=== PATIENT | female | born 1985 | race African-American/Black ===

== ENCOUNTER 2019-09-17 11:08 | Outpatient (CLI) | payer OTHER, SELFPAY ==
[2019-09-17] VITALS (33 sets, daily range): BP systolic 148–180; BP diastolic 81–112; PULSE 69–110; O2SAT 100
[2019-09-17 12:22] LABS: Basophils Percent Auto 0.4 % (0.2-1.2); Eosinophils Absolute Auto 0.1 K/mm3 (0-0.3); Eosinophils Percent Auto 1.8 % (0-4.4); Hematocrit 34.8 % (37.0-47.0); Hemoglobin 11.5 g/dL (12.0-15.0); Immature Granulocyte Absolute 0.06 K/mm3 (0.00-0.031); Immature Granulocyte Percent A 0.8 % (0-0.5); Lymphocytes Absolute Auto 1.73 K/mm3 (0.9-3.2); Lymphocytes Percent Auto 21.8 % (18.3-44.2); Mean Corpuscular Hemoglobin 30.8 pg (26-34); Mean Corpuscular Volume 93.3 fl (80-100); Mean Platelet Volume 9.7 fl (7.4-10.4); Monocytes Absolute Auto 0.6 K/mm3 (0.1-0.6); Monocytes Percent Auto 6.9 % (2.6-8.5); Neutrophils Absolute Auto 5.4 K/mm3 (1.3-6.7); Neutrophils Percent Auto 68.3 % (45.5-73.1); Platelet Count Result 312 k/mm3 (150-375); Red Blood Count 3.73 M/mm3 (4.2-5.4); Red Cell Distribution Width 12.8 % (11.5-14.5); White Blood Count 7.9 K/mm3 (4.5-10.0)
[2019-09-17 12:28] LABS: Alanine Aminotransferase 9 U/L (4-35); Albumin Level 3.6 g/dL (3.5-5.1); Alkaline Phosphatase 50 U/L (38-126); Aspartate Amino Transferase 21 U/L (14-36); Bilirubin,Total 0.2 mg/dL (0.2-1.3); Blood Urea Nitrogen 7 mg/dL (7-17); Calcium 8.9 mg/dL (8.4-10.2); Carbon Dioxide 28 mmol/L (22-30); Chloride 102 mmol/L (98-107); Estimated Glomerular Filt Rate > 60; Glucose 90 mg/dL (65-105); Potassium 3.9 mmol/L (3.4-5.0); Sodium 134 mmol/L (137-145); Uric Acid 3.4 mg/dL (2.5-7.5)
[2019-09-17] MEDS: NIFEdipine 10 MG CAPSULE PO ×2 (13:00→14:12)
[2019-09-17] MEDS: LABETALOL HCL 100 MG TABLET PO (13:00)
--- NOTE | 2019-09-17 13:00 | PC.NURSE ---
Called Dr. Monterroso with BPs and lab results. Orders received. May removed EF.
--- NOTE | 2019-09-17 13:43 | PC.NURSE ---
Pt refused dose of Procardia at this time.
--- NOTE | 2019-09-17 15:25 | PC.NURSE ---
Called Dr. Monterroso with pt status. Informed of BPs. Orders received and documented.
--- NOTE | 2019-09-17 15:45 | PC.NURSE ---
Called Dr. Monterroso with BP update. Orders received.
[2019-09-17] MEDS: LABETALOL HCL 100 MG TABLET 300 MG PO (16:03)
--- NOTE | 2019-09-17 17:13 | PC.NURSE ---
on unit. BPs reviewed. Informed to observe until 1800 and call with BPs.
--- NOTE | 2019-09-17 18:10 | PC.NURSE ---
Called Dr. Cummins with pt update. Informed of BPs. May D/C home with symptoms to call for. Call with BP >160/100.
--- NOTE | 2019-09-17 18:25 | PC.NURSE ---
Pt given D/C instructions to call for diastolic greater than 160 or systolic greater than 100, or any pre eclampsia symptoms noted on handout. Pt instructed to take Labetalol q 8hrs and times given when to take. Instructed to take Procardia at home in AM. Pt understands and agrees to instructions.
== END 2019-09-17 18:30 | disposition home or self-care (01) ==
LOC: ANHOBOP 11:14 → ANHOBPP 11:19
PROVIDERS: Visit Provider Obstetrics & Gynecology
DX: O13.9 Gestational [pregnancy-induced] hypertension without significant proteinuria, unspecified trimester (principal)
CPT/HCPCS: 36415; 80053; 84550; 85025; 99199; A9270

== ENCOUNTER 2019-10-10 15:04 | Outpatient (CLI) | payer OTHER, SELFPAY ==
[2019-10-10] VITALS (16 sets, daily range): BP systolic 147–178; BP diastolic 83–109; PULSE 75–90; TEMP 36.1
[2019-10-10 15:43] LABS: Basophils Percent Auto 0.2 % (0.2-1.2); Eosinophils Absolute Auto 0.1 K/mm3 (0-0.3); Eosinophils Percent Auto 1.6 % (0-4.4); Hematocrit 34.8 % (37.0-47.0); Hemoglobin 11.4 g/dL (12.0-15.0); Immature Granulocyte Absolute 0.03 K/mm3 (0.00-0.031); Immature Granulocyte Percent A 0.4 % (0-0.5); Mean Corpuscular HGB Conc 32.8 g/dl (32-36); Mean Corpuscular Hemoglobin 30.8 pg (26-34); Mean Corpuscular Volume 94.1 fl (80-100); Mean Platelet Volume 9.5 fl (7.4-10.4); Monocytes Absolute Auto 0.6 K/mm3 (0.1-0.6); Monocytes Percent Auto 7.4 % (2.6-8.5); Neutrophils Absolute Auto 5.6 K/mm3 (1.3-6.7); Neutrophils Percent Auto 68.4 % (45.5-73.1); Platelet Count Result 302 k/mm3 (150-375); Red Cell Distribution Width 12.8 % (11.5-14.5); White Blood Count 8.2 K/mm3 (4.5-10.0)
[2019-10-10 15:55] LABS: Add Urine Microscopic? NO; Appearance Urine Clear (Clear); Bilirubin Urine Negative (Negative); Blood Urine Negative (Negative); Color Urine Colorless (Yellow); Glucose Urine UA Negative (Negative); Ketones Urine Negative (Negative); Leukocyte Esterase Ur Negative LEU/UL (NEGATIVE); Nitrate Urine Negative (Negative); Protein Urine Negative (Negative); RBC Urine 0-2 /hpf (0-2); Specific Grav Ur 1.005 (1.001-1.035); Squamous Epithelial Cell Urine Occasional /hpf (Few); Urobilinogen Urine Negative mg/dL (<2.0); WBC Urine 0-3 /hpf (0-3)
[2019-10-10 15:57] LABS: Alanine Aminotransferase 10 U/L (4-35); Albumin Level 3.6 g/dL (3.5-5.1); Alkaline Phosphatase 51 U/L (38-126); Aspartate Amino Transferase 20 U/L (14-36); Bilirubin,Total 0.3 mg/dL (0.2-1.3); Blood Urea Nitrogen 6 mg/dL (7-17); Calcium 9.4 mg/dL (8.4-10.2); Carbon Dioxide 27 mmol/L (22-30); Chloride 101 mmol/L (98-107); Estimated Glomerular Filt Rate > 60; Glucose 95 mg/dL (65-105); Potassium 3.8 mmol/L (3.4-5.0); Sodium 132 mmol/L (137-145); Uric Acid 3.4 mg/dL (2.5-7.5)
[2019-10-10 16:10] LABS: Total Protein Urine Random 12 mg/dL
[2019-10-10 16:11] LABS: Creatinine Urine 24.3 mg/dL
[2019-10-10] MEDS: NIFEdipine 30 MG TAB.ER.24 PO (16:33)
--- NOTE | 2019-10-10 17:37 | PC.NURSE ---
173- called, read last several bp's. Order received to let pt eat and watch a few more bp's and call back for further orders.
--- NOTE | 2019-10-10 17:58 | PC.NURSE ---
1616- called, read bp's and labs. Orders received to start 24hr urine, give procardia 30mg now.
--- NOTE | 2019-10-10 18:41 | PC.NURSE ---
Updated Dr. Monterroso on maternal assessment, including BP and FHT. Order for discharge given. Patient to follow-up as scheduled. 24 hour urine to be returned at 10/11/2019 1800.
== END 2019-10-10 18:55 | disposition home or self-care (01) ==
LOC: ANHOBOP 15:10 → ANHOBPP 15:11
PROVIDERS: Family Provider Obstetrics & Gynecology; Visit Provider Obstetrics & Gynecology
DX: O13.9 Gestational [pregnancy-induced] hypertension without significant proteinuria, unspecified trimester (principal); Z3A.00 Weeks of gestation of pregnancy not specified
CPT/HCPCS: 36415; 59025; 80053; 81003; 82570; 84156; 84550; 85025; 87086; 87088; 99199; A9270

== ENCOUNTER 2019-10-11 18:35 | Outpatient (NON) | payer OTHER, SELFPAY ==
[2019-10-11 18:46] VITALS: BMI 59.8
[2019-10-11 19:24] LABS: Collection Time Urine 24 HOURS
[2019-10-11 19:33] LABS: Total Volume 24 Hour Urine 2600 ml
[2019-10-11 19:34] LABS: Patient Weight 370 Lbs
[2019-10-11 19:43] LABS: Specific Gravity Ur 1.013
[2019-10-11 19:52] LABS: Creatinine Clearance Urine 159.9 ml/min (75-125); Creatinine Urine 79.5 mg/dL; Total Protein Urine 24 Hr 286 MG/DAY (28-141); Total Protein Urine Random 11 mg/dL
== END 2019-10-11 18:36 ==
LOC: ANHOBOP 18:43
PROVIDERS: Visit Provider Obstetrics & Gynecology
DX: Z34.90 Encounter for supervision of normal pregnancy, unspecified, unspecified trimester (principal); Z3A.00 Weeks of gestation of pregnancy not specified
CPT/HCPCS: 81050; 82575; 84156

== ENCOUNTER 2019-10-21 08:42 | Observation (INO) | payer OTHER, SELFPAY ==
[2019-10-21 09:30] VITALS: BMI 62.4
[2019-10-21 09:31] VITALS: BP 145/83; PULSE 89
[2019-10-21 10:01] VITALS: BP 137/84; PULSE 84
--- NOTE | 2019-10-21 10:01 | LDADM ---
This patient, Jaimie Teague, was admitted to OB Post 115 on 10/21/19 at 08:42. Plans for labor, pain management and were discussed with patient. Patient/family oriented to hospital policies and general routines including ID bracelet, bed and alarms, visiting hours, pain management, procedures, bathroom and other care routines, personal items, smoking policy, room service/diet and guest tray routines, infant security routines, and visiting hours. Patient/Family are encouraged to report perceived risks to care and to ask questions if they do not understand what they are told or what they should do. See OBIX for further documentation.
--- NOTE | 2019-10-21 10:01 | PC.NURSE ---
Dr Monterroso here 0935 to evaluate pt for transfer with premature rupture of membranes clear fluid at 0810
--- NOTE | 2019-10-21 10:02 | PC.NURSE ---
8209 Dr Monterroso at bedside discussing plan of care and bedside u/s...SVE 1cm/thick/high
[2019-10-21 10:31] VITALS: BP 135/77; PULSE 82
--- NOTE | 2019-10-21 10:39 | PM.OBTRLD ---
OB - Triage/Final Diagnosis Visit Information Date of evaluation: 10/21/19 Comments/Additional reasons for admission: PPROM/chtn Bedside ultrasound performed vertex minimal fluid. pelvic exam closed by visualization cultures obtained and sent with patient. . Evaluation Baseline heart rate: 140 Variability: Average (6-10) monitor decelerations: None Cervical dilation (cm): 1 Cervical effacement (%): 0 station: -4 (vertex by ultrasound) Vital signs: Vital Signs - 24 hr 10/21/19 09:31 10/21/19 10:01 10/21/19 10:31 Pulse Rate 89 84 82 Blood Pressure 145/83 H 137/84 135/77 Final Diagnosis (1) premature rupture of membranes (PPROM) with unknown onset of labor: Code(s): O42.919 - premature rupture of membranes, unspecified as to length of time between rupture and onset of labor, unspecified trimester Status: Acute Plan: Patient to be transferred to tertiary care.
[2019-10-21] MEDS: NIFEdipine 30 MG TAB.ER.24 PO ×2 (10:46→10:47)
[2019-10-21] MEDS: BETAMETHASONE SOD PHOS/ACETATE 30 MG/5 ML VIAL 12 MG IM (10:56)
[2019-10-21] MEDS: LACTATED RINGERS 1,000 ML 100 ML IV CONT (10:57)
[2019-10-21 10:59] VITALS: PULSE 88
[2019-10-21] MEDS: LABETALOL HCL 100 MG TABLET 300 MG PO (10:59)
[2019-10-21 11:01] VITALS: BP 147/93; PULSE 81
[2019-10-21 11:30] VITALS: BP 144/81; PULSE 89
== END 2019-10-21 11:35 | disposition short-term general hospital (02) ==
PROVIDERS: Admitting Provider Obstetrics & Gynecology; Visit Provider Obstetrics & Gynecology
DX: O42.913 Preterm premature rupture of membranes, unspecified as to length of time between rupture and onset of labor, third trimester (principal); O16.3 Unspecified maternal hypertension, third trimester; Z3A.29 29 weeks gestation of pregnancy
CPT/HCPCS: 96372; 96374; A9270; G0378; G0379; J0456; J0702; J7060; J7120

== ENCOUNTER 2021-08-27 11:20 | Outpatient (CLI) | payer BC, SELFPAY ==
[2021-08-27] VITALS (14 sets, daily range): BP systolic 136–180; BP diastolic 80–102; PULSE 70–101; O2SAT 97–100
[2021-08-27 12:10] LABS: Basophils Percent Auto 0.3 % (0.2-1.2); Eosinophils Absolute Auto 0.1 K/mm3 (0-0.3); Eosinophils Percent Auto 2.1 % (0-4.4); Hematocrit 36.3 % (37.0-47.0); Hemoglobin 12.1 g/dL (12.0-15.0); Immature Granulocyte Absolute 0.02 K/mm3 (0.00-0.031); Immature Granulocyte Percent A 0.3 % (0-0.5); Lymphocytes Absolute Auto 1.92 K/mm3 (0.9-3.2); Lymphocytes Percent Auto 28.4 % (18.3-44.2); Mean Corpuscular HGB Conc 33.3 g/dl (32-36); Mean Corpuscular Hemoglobin 30.8 pg (26-34); Mean Corpuscular Volume 92.4 fl (80-100); Mean Platelet Volume 9.2 fl (7.4-10.4); Monocytes Absolute Auto 0.3 K/mm3 (0.1-0.6); Monocytes Percent Auto 4.9 % (2.6-8.5); Neutrophils Absolute Auto 4.3 K/mm3 (1.3-6.7); Platelet Count Result 331 k/mm3 (150-375); Red Blood Count 3.93 M/mm3 (4.2-5.4); Red Cell Distribution Width 12.9 % (11.5-14.5); White Blood Count 6.8 K/mm3 (4.5-10.0)
[2021-08-27 12:18] LABS: Alanine Aminotransferase 12 U/L (4-35); Alkaline Phosphatase 56 U/L (38-126); Anion Gap 7 mmol/L (8-16); Aspartate Amino Transferase 26 U/L (14-36); Bilirubin,Total 0.6 mg/dL (0.2-1.3); Blood Urea Nitrogen 6 mg/dL (7-17); Calcium 8.9 mg/dL (8.4-10.2); Carbon Dioxide 24 mmol/L (22-30); Chloride 102 mmol/L (98-107); Estimated Glomerular Filt Rate > 60; Glucose 99 mg/dL (65-110); Potassium 3.8 mmol/L (3.4-5.0); Sodium 133 mmol/L (137-145)
[2021-08-27 12:36] LABS: Creatinine Urine 226.1 mg/dL
[2021-08-27 12:38] LABS: Add Urine Microscopic? YES; Appearance Urine Cloudy (Clear); Bacteria Urine Trace /hpf; Bilirubin Urine Negative (Negative); Blood Urine Negative (Negative); Color Urine Yellow (Yellow); Glucose Urine UA Negative (Negative); Ketones Urine Negative (Negative); Leukocyte Esterase Ur Negative LEU/UL (NEGATIVE); Mucus Urine Rare /lpf; Nitrate Urine Negative (Negative); Protein Urine Negative (Negative); RBC Urine 0-2 /hpf (0-2); Specific Grav Ur 1.023 (1.001-1.035); Squamous Epithelial Cell Urine Many /hpf (Few); Urobilinogen Urine Negative mg/dL (<2.0); WBC Urine 0-3 /hpf (0-3)
--- NOTE | 2021-08-27 12:46 | PC.NURSE ---
1230-- Dr. De Santiago informed about patients blood pressures and labs.
[2021-08-27 12:49] LABS: Total Protein Urine Random < 5 mg/dL; Ur Ttl Prot Creatinine Ratio < 0.02 mg/mg (0-0.20)
[2021-08-27 13:06] LABS: HIV 1/2 Ab P24 Ag Result Negative (Negative)
[2021-08-27 13:17] LABS: Hepatitis B Surface Antigen Negative (Negative)
[2021-08-27] MEDS: LABETALOL HCL 100 MG TABLET PO (14:01)
--- NOTE | 2021-08-27 14:20 | PC.NURSE ---
1345--BP's reported to Dr. De Santiago. Med orders given. Reported patients need to leave without BP WNL. / Jonnathan expressed need for pt to remain in unit until stable. Information relayed to patient.
--- NOTE | 2021-08-27 14:23 | PC.NURSE ---
1400--Discussed with pt importance of remaining on unit until BP is stable-discussed (per Dr. De Santiago) possibility of stroke or seizure. Pt is aware and acknowledged that she understands this information. Pt states she will stay one hour after dosage of med and then she needs to leave.
[2021-08-27 17:34] LABS: Rubella IgG Antibody > 120.0 IU/ML
[2021-08-29 10:47] LABS: Rapid Plasma Reagin Non-Reactive (NonReactive)
== END 2021-08-27 14:56 | disposition home or self-care (01) ==
LOC: ANHOBOP 11:30 → ANHOBPP 11:31
PROVIDERS: PCP Nurse Practitioner Family; Visit Provider Obstetrics & Gynecology Gynecology
DX: O13.9 Gestational [pregnancy-induced] hypertension without significant proteinuria, unspecified trimester (principal); Z3A.00 Weeks of gestation of pregnancy not specified
CPT/HCPCS: 36415; 80053; 81001; 82570; 84156; 84550; 85025; 86592; 86703; 86762; 86850; 86900; 86901; 87086; 87340; 99199; A9270; G0432

== ENCOUNTER 2021-08-30 11:53 | Outpatient (NON) | payer BC, SELFPAY ==
[2021-08-30 13:00] VITALS: BMI 65.2
[2021-08-30 13:38] LABS: Collection Time Urine 24 HOURS
[2021-08-30 13:50] LABS: Total Protein Urine Random 10 mg/dL
[2021-08-30 13:52] LABS: Creatinine Urine 67.8 mg/dL; Patient Weight 404 Lbs
[2021-08-30 14:41] LABS: Specific Gravity Ur 1.015; Total Protein Urine 24 Hr 300 mg/24hr (28-141); Total Volume 24 Hour Urine 3000 ml
[2021-08-30 14:42] LABS: Total Volume 24 Hour Urine 3000 ml
[2021-08-30 14:45] LABS: Creatinine Clearance Urine 151.5 ml/min (75-125); Serum Creat 0.6
== END 2021-08-30 11:54 | disposition home or self-care (01) ==
PROVIDERS: PCP Nurse Practitioner Family; Visit Provider Obstetrics & Gynecology Gynecology
DX: O13.9 Gestational [pregnancy-induced] hypertension without significant proteinuria, unspecified trimester (principal); Z3A.00 Weeks of gestation of pregnancy not specified
CPT/HCPCS: 81050; 82575; 84156

== ENCOUNTER 2022-01-27 14:15 | Outpatient (CLI) | payer BC, SELFPAY ==
--- NOTE | ~2022-01-27 | US_ITS ---
EXAMINATION: US OB limited w BPP DATE: 01/27/2022 16:03 INDICATION: Nonreactive nonstress test. Third trimester. TECHNIQUE: Real-time pelvic ultrasound was performed. COMPARISON: None. FINDINGS: There is a single living fetus in vertex presentation. The placenta is anterior. heart rate is 146 beats per minute (bpm). The amniotic fluid index is 11.3 cm, which is normal. Biophysical profile performed by the technologist: breathing (30 sec sustained breathing in 30 minutes): 2 out of 2 movement (3 gross body movements in 30 minutes): 2 out of 2 tone (one episode of vtgrmnq-xcpvmzubu-qivmwpo limb movement): 2 out of 2 Amniotic fluid pocket (2 cm): 2 out of 2 Total score: 8 out of 8 IMPRESSION: 1. Single living fetus in vertex presentation. 2. Biophysical profile 8 out of 8. Reviewed, dictated and finalized at location A.
[2022-01-27 16:28] LABS: Basophils Percent Auto 0.3 % (0.2-1.2); Eosinophils Absolute Auto 0.2 K/mm3 (0-0.3); Hematocrit 35.1 % (37.0-47.0); Hemoglobin 11.3 g/dL (12.0-15.0); Immature Granulocyte Absolute 0.08 K/mm3 (0.00-0.031); Lymphocytes Absolute Auto 1.66 K/mm3 (0.9-3.2); Lymphocytes Percent Auto 21.3 % (18.3-44.2); Mean Corpuscular HGB Conc 32.2 g/dl (32-36); Mean Corpuscular Hemoglobin 30.7 pg (26-34); Mean Corpuscular Volume 95.4 fl (80-100); Mean Platelet Volume 9.1 fl (7.4-10.4); Monocytes Absolute Auto 0.5 K/mm3 (0.1-0.6); Monocytes Percent Auto 6.9 % (2.6-8.5); Neutrophils Absolute Auto 5.4 K/mm3 (1.3-6.7); Neutrophils Percent Auto 68.5 % (45.5-73.1); Platelet Count Result 318 k/mm3 (150-375); Red Blood Count 3.68 M/mm3 (4.2-5.4); Red Cell Distribution Width 13.2 % (11.5-14.5); White Blood Count 7.8 K/mm3 (4.5-10.0)
[2022-01-27 16:31] LABS: Alanine Aminotransferase 18 U/L (6-35); Albumin Level 3.7 g/dL (3.5-5.1); Alkaline Phosphatase 80 U/L (38-126); Anion Gap 7 mmol/L (8-16); Aspartate Amino Transferase 32 U/L (14-36); Bilirubin,Total 0.6 mg/dL (0.2-1.3); Blood Urea Nitrogen 4 mg/dL (7-17); Calcium 8.7 mg/dL (8.4-10.2); Carbon Dioxide 27 mmol/L (22-30); Chloride 101 mmol/L (98-107); Estimated Glomerular Filt Rate > 60; Glucose 97 mg/dL (65-110); Potassium 4.1 mmol/L (3.4-5.0); Sodium 135 mmol/L (137-145); Uric Acid 3.8 mg/dL (2.5-7.5)
[2022-01-27 16:38] LABS: Total Protein Urine Random 8 mg/dL; Ur Ttl Prot Creatinine Ratio 0.11 mg/mg (0-0.20)
[2022-01-27 16:47] LABS: Add Urine Microscopic? YES; Appearance Urine Clear (Clear); Bilirubin Urine Negative (Negative); Blood Urine Negative (Negative); Color Urine Yellow (Yellow); Glucose Urine UA Negative (Negative); Ketones Urine Trace mg/dL (Negative); Leukocyte Esterase Ur Negative LEU/UL (NEGATIVE); Nitrate Urine Negative (Negative); Protein Urine Negative (Negative); Specific Grav Ur 1.015 (1.001-1.035); Urobilinogen Urine 0.2 mg/dL (<2.0)
[2022-01-27 17:08] VITALS: BP 156/86; PULSE 90
[2022-01-27 17:19] LABS: Bacteria Urine Trace /hpf; RBC Urine 0-2 /hpf (0-2); Squamous Epithelial Cell Urine Rare /hpf (Few); WBC Urine 0-3 /hpf (0-3)
--- NOTE | 2022-01-27 17:23 | PC.NURSE ---
1532--Reported elevated BP's to Jasper Deleon. Orders received. 1619--NST,BPP and manual BP reported to Jasper Pagan. Labs sent. Pt refusing Procardia 10 mg. 1624--Joe Deleon call transferred to pt room to discuss plan nof care. Pt continues to refuse Procardia 10 mg. Procardia 10mg will be called into Pharmacy for pt to take-pt agrees to this plan with Jasper Deleon. 1703--Labs and manual BP's reported to Jasper Deleon. DC orders given. 1720--Pt DC'd to home. Pt reminded to chicken picker prescription and take as directed. Pt agrees to this.
--- NOTE | 2022-01-27 17:38 | PC.NURSE ---
1710--Manual BP's 156/86 and 150/84.(right forearm) Reported to front desk worker.
== END 2022-01-27 17:20 | disposition home or self-care (01) ==
PROVIDERS: Advanced Practice Midwife; PCP Nurse Practitioner Family; Visit Provider Obstetrics & Gynecology Gynecology
DX: O13.9 Gestational [pregnancy-induced] hypertension without significant proteinuria, unspecified trimester (principal); Z3A.00 Weeks of gestation of pregnancy not specified
CPT/HCPCS: 36415; 59025; 76815; 76819; 80053; 81001; 82570; 84156; 84550; 85025; 87086; 87088

== ENCOUNTER 2022-02-14 09:21 | Outpatient (RCR) | payer BC, SELFPAY ==
--- NOTE | ~2022-02-14 | US_ITS ---
EXAMINATION: US OB BPP wo non-stress DATE: 02/14/2022 11:25 INDICATION: Nonreactive nonstress test TECHNIQUE: Real-time pelvic ultrasound was performed. The interpreting radiologist was not present fo r the study. COMPARISON: 01/27/2022 FINDINGS: There is a single living fetus in vertex presentation. The placenta is anterior. heart rate is 150 beats per minute (bpm). Biophysical profile performed by the technologist: breathing (30 sec sustained breathing in 30 minutes): 2 out of 2 movement (3 gross body movements in 30 minutes): 2 out of 2 tone (one episode of safwnah-fmvjlolil-zmnxbwq limb movement): 2 out of 2 Amniotic fluid pocket (2 cm): 2 out of 2 Total score: 8 out of 8 IMPRESSION: 1. Single living fetus in vertex presentation. 2. Biophysical profile 8 out of 8. Reviewed, dictated and finalized at location B.
[2022-02-14 11:30] VITALS: BP 142/88; PULSE 80
== END 2022-03-23 10:10 | disposition home or self-care (01) ==
LOC: ANHOBOP 09:21
PROVIDERS: PCP Nurse Practitioner Family; Visit Provider Obstetrics & Gynecology Gynecology
DX: O36.8330 Maternal care for abnormalities of the fetal heart rate or rhythm, third trimester, not applicable or unspecified (principal); Z3A.37 37 weeks gestation of pregnancy
CPT/HCPCS: 59025; 76819

== ENCOUNTER 2022-02-22 15:55 | Inpatient (IN) | payer BC, SELFPAY ==
[2022-02-22] VITALS (49 sets, daily range): BP systolic 124–201; BP diastolic 62–129; PULSE 70–102; TEMP 36.4–36.8; O2SAT 93–100; BMI 73.3
--- NOTE | 2022-02-22 16:25 | LDADM ---
This patient, Jaimie Teague, was admitted to Labor/Delivery/Recovery 103 on 02/22/22 at 15:55. Plans for labor, pain management and were discussed with patient. Patient/family oriented to hospital policies and general routines including ID bracelet, bed and alarms, visiting hours, pain management, procedures, bathroom and other care routines, personal items, smoking policy, room service/diet and guest tray routines, security routines, and visiting hours. Patient/Family are encouraged to report perceived risks to care and to ask questions if they do not understand what they are told or what they should do. See OBIX for further documentation.
[2022-02-22 16:46] LABS: Basophils Percent Auto 0.3 % (0.2-1.2); Eosinophils Absolute Auto 0.1 K/mm3 (0-0.3); Eosinophils Percent Auto 1.9 % (0-4.4); Hematocrit 34.3 % (37.0-47.0); Hemoglobin 11.3 g/dL (12.0-15.0); Immature Granulocyte Absolute 0.06 K/mm3 (0.00-0.031); Immature Granulocyte Percent A 0.8 % (0-0.5); Lymphocytes Absolute Auto 1.55 K/mm3 (0.9-3.2); Lymphocytes Percent Auto 20.9 % (18.3-44.2); Mean Corpuscular HGB Conc 32.9 g/dl (32-36); Mean Corpuscular Hemoglobin 31.1 pg (26-34); Mean Corpuscular Volume 94.5 fl (80-100); Mean Platelet Volume 9.4 fl (7.4-10.4); Monocytes Absolute Auto 0.6 K/mm3 (0.1-0.6); Monocytes Percent Auto 7.7 % (2.6-8.5); Neutrophils Absolute Auto 5.1 K/mm3 (1.3-6.7); Neutrophils Percent Auto 68.4 % (45.5-73.1); Platelet Count Result 274 k/mm3 (150-375); Red Blood Count 3.63 M/mm3 (4.2-5.4); Red Cell Distribution Width 14.2 % (11.5-14.5); White Blood Count 7.4 K/mm3 (4.5-10.0)
--- NOTE | 2022-02-22 16:47 | P.PNAN_ITS ---
Anes - Eval Pre Procedure Procedure: labor epidural Date/Time: 02/22/22 16:47 Pre Op Diagnosis: Induction of Labor Patient Data Age: 37 Gender: F Height: 1.65 m Weight: 200 kg Last Vital Signs Pulse 79 02/22/22 16:46 BP 195/108 H 02/22/22 16:46 O2 Del Method Room Air 02/22/22 16:24 Allergies Allergy/AdvReac Type Severity Reaction Status Date / Time No Known Allergies Allergy Verified 09/17/19 12:47 Home Medications Medication Instructions Recorded Confirmed Type labetalol 300 mg tablet 300 mg PO TID 01/27/22 02/22/22 History Classic 1 tab-cap PO DAILY 02/22/22 02/22/22 History aspirin 81 mg chewable tablet 81 mg PO DAILY 02/22/22 02/22/22 History Laboratory Tests 02/22/22 02/22/22 02/22/22 16:34 16:34 16:34 WBC Pending RBC Pending Hgb Pending Hct Pending MCV Pending MCH Pending MCHC Pending RDW Pending Plt Count Pending MPV Pending Immature Gran % (Auto) Pending Neut % (Auto) Pending Lymph % (Auto) Pending [place] % (Auto) Pending Eos % (Auto) Pending Baso % (Auto) Pending Lymph # (Auto) Pending [place] # (Auto) Pending Eos # (Auto) Pending Baso # (Auto) Pending Abs Immat Gran (auto) Pending Absolute Neuts (auto) Pending Absolute Nucleated RBC Pending Nucleated RBC % Pending RPR Pending HIV 1&2 Ab/P24 Ag 4thGn Pending Patient hx anesthesia problems: none Family hx anesthesia problems: none Results Review: All pre-operative results and documents have been reviewed as part of the pre- operative evaluation. [facility] Past Medical History Medical History premature rupture of membranes (PPROM) with unknown onset of labor Family History Family History Mother Hypertension Social History Social History Substance use: never Spiritual care concerns: No Exam Day of Procedure 02/22/22 16:47 Patient weight: super morbidly obese (73 BMI) Airway: Mallampati scale class III Neurological: alert and oriented
[2022-02-22] MEDS: DINOPROSTONE 10 MG VAG INSERT VAGINAL (17:15)
[2022-02-22] MEDS: LACTATED RINGERS 1,000 ML 125 ML IV CONT ×3 (17:45→21:15)
[2022-02-22] MEDS: AMPICILLIN 2 GM/NS 100 ML 2 GM/100 ML BAG IVPB (17:47)
[2022-02-22] MEDS: LABETALOL HCL 100 MG TABLET 300 MG PO (21:15)
[2022-02-22] MEDS: AMPICILLIN 1 GM/NS 50 ML 1 GM/50 ML BAG IVPB (21:15)
--- NOTE | 2022-02-22 21:25 | WPDOBADMIT ---
Obstetrics - Admit Note Admission Note: record reviewed. No pertinent additions to the history and/or any subsequent changes in the physical findings that are not consistent with the expected course of the were found. Additions to the history and/or subsequent changes in the physical findings follow. Here for MIL for CHTN with stable proteinuria (approx 300 mg/24 hours each trimester). Cervix now 5/50/-3 with prior SROM. Now forebag collecting at os. Forebag ruptured and IUPC started because RN would not begin Pitocin without it. FHTs reactive.
--- NOTE | 2022-02-22 21:27 | PM.OBPNLAB ---
Pain Control Date/time seen: 02/22/22 21:27 Pain control: epidural Comments: bedside u/s done and vertex
[2022-02-23] VITALS (13 sets, daily range): BP systolic 124–160; BP diastolic 72–101; PULSE 72–101; RESP 18–20; TEMP 36.1–37.1; O2SAT 96–100
[2022-02-23] MEDS: LACTATED RINGERS 1,000 ML 125 ML IV CONT (00:46)
[2022-02-23] MEDS: OXYTOCIN 30 UNITS/NS 500 ML 30 UNITS/500 ML BAG IV CONT (00:46)
[2022-02-23] MEDS: AMPICILLIN 1 GM/NS 50 ML 1 GM/50 ML BAG IVPB (01:45)
[2022-02-23] MEDS: SODIUM CHLORIDE 0.9% IV 300 ML 600 ML I-UTERINE (03:14)
--- NOTE | 2022-02-23 03:56 | PM.OBPRVD ---
OB - Delivery Note Procedure Delivery date: 02/23/22 Procedure: vacuum assisted vaginal delivery Events: Chronic Hypertension and Other (chronic proteinuria; Morbid obesity BMI 65) Induction method: Per Pitocin Protocol and Per Cervidil Protocol Delivery monitor: External FHT and Internal Uterine Route of delivery: Indication for instrumentation: nonreassuring FHR tracing Laceration Description: Perineal - 2nd Degree Delivery repair: vicryl (3-0) Specimen: Yes (placenta) Quantitative Blood Loss (ml): 150 Anesthesia type: Epidural Disposition: Floor Narrative: Called when patient / to come in due to deep variables to 40's and 50's. On arrival, per RN anterior lip. Put patient up for delivery and infant with one push. Patient with poor pushing efforts and unable to monitor. Vacuum applied and with next push delivered head. Tight nuchal cord delivered through and body delivery immediately. Baby Date of : 02/23/22 Weeks of gestation at delivery: 38 Infant gender: Female Weight (pounds): 7 Weight (ounces): 8 presentation: vertex position: Right Occiput Anterior Placenta delivery description: Spontaneous Cord Vessel Description: 3 Vessels, Nuchal Cord (tight) and Other (completely straight cord without any twisting) score one minute: 8 score five minutes: 9
--- NOTE | 2022-02-23 04:01 | PM.OBDSVD ---
DS: Admitting Diagnosis Discharge Date 02/24/22 Admitting Diagnosis IUP 38 weeks CHTN Chronic proteinuria DS: Discharge Diagnosis Discharge Diagnosis (1) (normal spontaneous vaginal delivery): Code(s): O80 - Encounter for full-term uncomplicated delivery Status: Acute OB - DS: Summary OB Procedures : NST and Ultrasound OB Procedures Intrapartum: Vacuum extraction OB Procedures: : None Peripartum Data Infant Delivery Method: Assisted Delivery (vacuum assisted) Laceration Description: Perineal - 2nd Degree complications: none Status at Discharge Functional status at discharge: independent ambulation Overall status at discharge: patient is progressing back to baseline Time Spent with Patient Time attestation: Total time spent providing and/or coordinating discharge services: DS: Data Data Completed and Pending Labs on day of discharge: Labs from last 24 hours 02/22/22 02/22/22 02/22/22 16:34 16:34 16:34 WBC RBC Hgb Hct MCV MCH MCHC RDW Plt Count MPV Immature Gran % (Auto) Neut % (Auto) Lymph % (Auto) [place] % (Auto) Eos % (Auto) Baso % (Auto) Lymph # (Auto) [place] # (Auto) Eos # (Auto) Baso # (Auto) Abs Immat Gran (auto) Absolute Neuts (auto) Absolute Nucleated RBC Nucleated RBC % RPR HIV 1&2 Ag/Ab, 4th Gen Pending HIV 1&2 Ab/P24 Ag 4thGn Cancelled Blood Type O Positive Antibody Screen Negative 02/22/22 02/22/22 16:34 16:34 WBC 7.4 RBC 3.63 L Hgb 11.3 L Hct 34.3 L MCV 94.5 MCH 31.1 MCHC 32.9 RDW 14.2 Plt Count 274 MPV 9.4 Immature Gran % (Auto) 0.8 H Neut % (Auto) 68.4 Lymph % (Auto) 20.9 [place] % (Auto) 7.7 Eos % (Auto) 1.9 Baso % (Auto) 0.3 Lymph # (Auto) 1.55 [place] # (Auto) 0.6 Eos # (Auto) 0.1 Baso # (Auto) 0.0 Abs Immat Gran (auto) 0.06 H Absolute Neuts (auto) 5.1 Absolute Nucleated RBC 0.0 Nucleated RBC % 0.0 RPR Pending HIV 1&2 Ag/Ab, 4th Gen HIV 1&2 Ab/P24 Ag 4thGn Blood Type Antibody Screen Discharge Plan Discharge Attending physician on discharge: Fatoumata De Santiago Consulting providers: Nory Deleon ; Concepcion Mock ; Concepcion Turner Discharging Clinician: Nory Deleon Anticipated Discharge Date/Time: 02/25/22 04:04 Patient Disposition: Home, Self-Care Activity: may shower and pelvic rest Diet: as tolerated and regular Discharge Instructions: Education: Mom and Baby Guide Given to: Mother Follow-Up: Call your delivering provider's office for an appointment to be seen in: 1 Week Mom and baby should come to the [facility] for the follow-up appointment. Appointment Date/Time: February 25, 2022 at 10:00 am What to expect at your follow-up visit: Blood Pressure Check Call [phone] if you are unable to keep your appointment time. BREAST CARE: * Wear a snug supportive bra. * For engorgement discomfort: Breast Feeding: * Apply warm moist washcloths * Express milk as needed to relieve engorgement * Wear loose clothing * For sore nipples: * Identify correct latch-on * Apply warm moist washcloths before and after nursing * Air dry nipples after nursing * May apply Lansinoh cream to nipples EPISIOTOMY/PERINEAL CARE: * Until bleeding stops, use your kimberlyn bottle after urinating * Change your pad frequently throughout the day * You may take sitz baths several times a day (fill your bathtub with warm water and soak for 20 minutes.) Do NOT bathe in the water * No tub baths until seen by your physician - You may shower ACTIVITY: * Rest as much as possible. * Do not exercise or lift anything heavier than your baby (such as laundry or other children.) * Avoid stairs or driving as much as possible. * Do not put anything into the vagina.
[2022-02-23] MEDS: OXYTOCIN 30 UNITS/NS 500 ML 30 UNITS/500 ML BAG 125 UNITS IV CONT (04:20)
[2022-02-23] MEDS: LABETALOL HCL 100 MG TABLET 300 MG PO ×3 (06:01→21:12)
[2022-02-23] MEDS: BENZOCAINE 20% AER SPR (*SP) 56 GM CAN 1 SPRAY TOPICAL (06:02)
[2022-02-23] MEDS: WITCH HAZEL 40 PADS 1 PAD TOPICAL (06:02)
[2022-02-23] MEDS: IBUPROFEN 600 MG TABLET PO ×3 (06:02→21:12)
--- NOTE | 2022-02-23 07:31 | OBPPTRN ---
Patient transferred to post room #283 via wheelchair. Support person present. Oriented to unit, room, information board, rooming in, admission packet and security measures. Patient verbalizes understanding.
[2022-02-23 07:55] LABS: Rapid Plasma Reagin Non-Reactive (NonReactive)
[2022-02-23 08:09] LABS: HIV 1/2 Ab P24 Ag 0; HIV 1/2 Ab P24 Ag Result Negative (Negative)
--- NOTE | 2022-02-23 10:44 | PC.NURSE ---
0845-Introductions were made, then consulted with patient to assess needs related to . Mother led the conversation with her?plans to feed?her by breast, pumping, and bottle with formula. RN encouraged understanding of the benefits of skin to skin (unwrapping infant and placing vertically on her chest), responsive feeding and how to watch for early feeding signs, frequency of feeding on demand about every 8-12 times in 24 hours (every 2-3 hours), milk production, signs of adequate intake/output and how to record on the feeding sheet. Nipple care reviewed with optimal latch and good positioning. Resources provided for inpatient and outpatient services using a resource guide and mom/baby guide. Mother voiced understanding of information and will call if there is a request for assistance. Reported to primary RN.
[2022-02-23] MEDS: ACETAMINOPHEN 325 MG TABLET 650 MG PO (15:46)
[2022-02-24] MEDS: ACETAMINOPHEN 325 MG TABLET 650 MG PO ×2 (01:05→11:31)
[2022-02-24 05:32] LABS: Hemoglobin 11.3 g/dL (12.0-15.0)
[2022-02-24 06:47] VITALS: PULSE 80
[2022-02-24] MEDS: MULTIVIT/MIN/PREN/FOL AC/IRON TABLET 1 TAB PO (06:47)
[2022-02-24] MEDS: LABETALOL HCL 100 MG TABLET 300 MG PO ×2 (06:47→13:14)
[2022-02-24] MEDS: IBUPROFEN 600 MG TABLET PO (06:48)
--- NOTE | 2022-02-24 07:32 | WPDANLDPN2 ---
Anes-Prog Note L&D Date/Time: 02/24/22 07:32 Comfortable throughout: labor and delivery Neuraxial method: epidural Epidural/Spinal procedure site: clean & non-tender Neuro status: Neuro function grossly intact. Cardiovascular status: normal Respiratory status: normal Airway patency: baseline Mental status: baseline Post-Op hydration status: normal Vital Signs: Last Vital Signs Temp 36.4 C 02/23/22 23:00 Pulse 80 02/24/22 06:47 Resp 20 02/23/22 23:00 BP 152/101 H 02/23/22 23:00 Pulse Ox 100 02/23/22 15:46 O2 Del Method Room Air 02/23/22 11:30 Pain score (VAS): 1 I/O: Intake & Output 02/23/22 02/23/22 02/24/22 15:59 23:59 07:59 Intake Total 500 Balance 500 Post-procedural complaints: none Patient feedback: Patient satisfied with anesthetic care.
[2022-02-24 08:00] VITALS: BP 135/80; PULSE 80; RESP 16; TEMP 36.3; O2SAT 99
--- NOTE | 2022-02-24 09:23 | P.PNOB_ITS ---
OB - PN: Subj Subjective Date/time seen: 02/24/22 0735 Patient comments: no complaints, pain well controlled and tolerating diet baby status: doing well and nursing well [place] feeding status: breast and bottle feeding OB - PN: Obj Data Labs CBC & Chem 7: 02/24/22 04:19 Labs: Laboratory Results - last 24 hr 02/24/22 04:19 Hgb 11.3 L Hct 35.0 L OB - PN A/P Plan day: 1 Plan: routine care Comments: Pt strongly desires DC home. Per RN, Labetalol schedule was changed but pt received all 3 doses. BPs mild range overnight. Jaimie denies NUNES, visual changes, and RUQ pain. Will monitor BPs this am and this afternoon. If WNL, will plan DC home. If BPs upper mild range or severe, would plan to add Nifedipine and continue to observe overnight. Time Spent With Patient Time: Total time spent is greater than 50% in coordination of care (as documented) at patient's floor/unit and/or counseling patient: Review of Systems Review of Systems: All systems reviewed & are unremarkable except as noted in HPI and below Exam Narrative: Up and walking in room. Dressed in street chothes. Cheerful, happy affect. Requesting discharge home today. Const: General: no acute distress Orientation/consciousness: patient oriented x3 Limitations: no limitations Resp: Effort & Inspection: normal respiratory effort Auscultation: clear to auscultation bilaterally Cardio: Rate: regular rate GI: Inspection: normal to inspection Neuro: General: patient oriented x3 Extrem: General: normal to inspection Right lower extremity: edema Details: pitting and 2+ Left lower extremity: edema Details: pitting and 2+ Psych: Appearance: grossly normal Mental Status: mental status grossly normal Affect: normal affect Thought process: Normal thought process present
[2022-02-24 13:14] VITALS: PULSE 80
[2022-02-24 14:31] VITALS: BP 154/90
--- NOTE | 2022-02-24 15:54 | PM.OBDSVD ---
DS: Admitting Diagnosis Discharge Date 02/24/22 Admitting Diagnosis IUP. SROM OB - DS: Summary OB Procedures : NST and Ultrasound OB Procedures Intrapartum: Spontaneous Vag Delivery OB Procedures: : None Time Spent with Patient Time attestation: Total time spent providing and/or coordinating discharge services: DS: Data Data Completed and Pending Pending studies at discharge: Pending at discharge 02/23/22 03:43 Surgical [PTH] Routine Labs on day of discharge: Labs from last 24 hours 02/24/22 04:19 Hgb 11.3 L Hct 35.0 L Discharge Plan Discharge Attending physician on discharge: Fatoumata De Santiago Discharging Clinician: Nory Deleon Anticipated Discharge Date/Time: 02/25/22 04:04 Patient Disposition: Home, Self-Care Activity: may shower and pelvic rest Diet: as tolerated and regular Patient Instructions: Antibiotic Form Stand Alone Forms: General Discharge Information Follow-up/Referrals: Fatoumata De Santiago MD [Physician] - 1 Week (BP check at 1 week. 6 wk PP visit) Discharge Medications: New ibuprofen 600 mg Tablet 600 mg PO Q6H PRN (Reason: Cramping) 30 Days Qty: 45 0RF KPN Tablet 1 tablet PO DAILY 30 Days Qty: 30 11RF norethindrone (contraceptive) [Ortho Micronor] 0.35 mg tablet See Rx Instructions .ROUTE .COMPLEX 30 Days Qty: 84 3RF Rx Instructions: 0.35 mg orally. Start at 4-6 weeks post . Dermoplast (with menthol) 20-0.5 % Aerosol 1 spray topical PRN PRN (Reason: Perineal Discomfort) Qty: 56 0RF Continued labetalol 300 mg tablet 300 mg PO TID Classic 1 tab-cap PO DAILY Discontinued aspirin [Aspirin Child] 81 mg Tablet,Chewable 81 mg PO DAILY Date of admission: 02/22/22 15:55 Primary Care Provider: Steffi,Jaimie Veliz Admitting Provider: Fatoumata De Santiago Attending physician on admission: Fatoumata De Santiago Condition: Stable
--- NOTE | 2022-02-24 15:56 | PM.OBPNVD ---
OB - PN: Subj Subjective Date/time seen: 02/24/22 15:56 Interval history: Did not physically see pt at this time. VS reviewed. OB - PN: Obj Data Labs CBC & Chem 7: 02/24/22 04:19 Labs: Laboratory Results - last 24 hr 02/24/22 04:19 Hgb 11.3 L Hct 35.0 L OB - PN A/P Plan day: 1 Plan: discharge home Comments: VS reviewed. Continues to decline visual changes, RUQ pain, or NUNES. Plan for return PP visit to hospital tomorrow and BP check in one week. Pt to take BPs daily and report if >160/110. Time Spent With Patient Time: Total time spent is greater than 50% in coordination of care (as documented) at patient's floor/unit and/or counseling patient:
[2022-02-25 10:07] VITALS: BP 148/104; PULSE 71; RESP 20; TEMP 36.7; O2SAT 99
== END 2022-02-24 17:33 | disposition home or self-care (01) | DRG 807 ==
LOC: ANHLDR 02-23 04:04 → ANHOB2 02-23 07:38
PROVIDERS: Advanced Practice Midwife; Admitting Provider Obstetrics & Gynecology Gynecology; PCP Nurse Practitioner Family; Visit Provider Obstetrics & Gynecology Gynecology
DX: O10.92 Unspecified pre-existing hypertension complicating childbirth (principal); Z37.0 Single live birth; O99.824 Streptococcus B carrier state complicating childbirth; O76 Abnormality in fetal heart rate and rhythm complicating labor and delivery; O70.1 Second degree perineal laceration during delivery; O99.214 Obesity complicating childbirth; E66.01 Morbid (severe) obesity due to excess calories; O11.4 Pre-existing hypertension with pre-eclampsia, complicating childbirth; O69.1XX0 Labor and delivery complicated by cord around neck, with compression, not applicable or unspecified; Z3A.38 38 weeks gestation of pregnancy
CPT/HCPCS: 36415; 85014; 85018; 85025; 86592; 86703; 86850; 86900; 86901; 87389; 88307; A9270; G0432; J0290; J2590; J2795; J7030; J7120